=== PATIENT | female | born 1950 | race Caucasian/White ===

== ENCOUNTER 2020-02-08 08:08 | Outpatient (CLI) | payer MEDICARE, BC, SELFPAY ==
--- NOTE | 2020-02-08 08:17 | XR_ITS ---
WS: [id number] KNEE RIGHT TECHNIQUE: 3 views of the right knee CLINICAL INFORMATION: S/P RIGHT TKA COMPARISON: December 27, 2018 FINDINGS: Right TKA. Hardware appears in good position. No evidence of hardware loosening. Hypertrophic patella . XR/XR knee RT 3V* [id number] IMPRESSION: Unremarkable right TKA.
== END 2020-02-08 08:09 | disposition home or self-care (01) ==
LOC: RAD 08:12
PROVIDERS: Family Provider Nurse Practitioner Family; Visit Provider Orthopaedic Surgery
DX: Z47.1 Aftercare following joint replacement surgery (principal); Z96.651 Presence of right artificial knee joint
CPT/HCPCS: 73562